=== PATIENT | male | born 1995 | race Caucasian/White ===

== ENCOUNTER 2016-09-23 20:53 | Emergency (ER) ==
--- NOTE | 2016-09-23 21:04 | ED EKG INTERP ---
EKG Interpretation - EKG Time of EKG reading by physician:: 21:03 EKG Read and Signed by:: Pascual Pina Rate: 85 Rhythm: nsr [place]: normal QRS: normal [place] Interval: normal ST Wave: normal
[2016-09-23] MEDS ORDERED: ASPIRIN PO STA (21:13)
[2016-09-23] MEDS ORDERED: NITROGLYCERIN SL PRN (21:13)
[2016-09-23 21:20] LABS: MANUAL DIFF NEEDED? NO
[2016-09-23 21:25] LABS: BASO% 0.4 % (0.0-0.8); EOS# 0.05 X1000 (0.0-0.7); EOS% 0.6 % (0.0-10.0); HEMATOCRIT 45.7 % (42.0-52.0); HEMOGLOBIN 16.1 g/dL (14.0-18.0); IMM GRAN# 0.02 X1000 (0.0-0.04); IMM GRAN% 0.2 % (0.0-0.5); LYMPH# 1.63 X1000 (1.2-3.4); LYMPH% 19.6 % (20.5-51.1); MCH 30.2 PG (27-31); MCHC 35.2 g/dL (33-37); MCV 85.7 FL (81-99); MONO# 1.27 X1000 (0.11-0.59); MONO% 15.3 % (1.7-9.3); MPV 9.6 FL (7.4-10.4); NEUT% 63.9 % (42.2-75.2); PLT 302 X1000 (130-400); RBC 5.33 XMIL (4.7-6.1)
[2016-09-23 21:30] LABS: INR 1.07; PROTIME 11.3 Seconds (9.2-11.7)
[2016-09-23 21:50] LABS: AGAP 15; ALBUMIN 4.6 g/dL (3.5-5.0); ALKALINE PHOSPHATASE 48 U/L (32-122); BUN 13 mg/dL (8-22); CALCIUM 9.9 mg/dL (8.8-10.2); CHLORIDE 100 mmol/L (98-107); COSMO 276; GOT 25 U/L (10-34); GPT 52 U/L (10-44); MAGNESIUM 2.2 mg/dL (1.5-2.7); POTASSIUM 3.6 mmol/L (3.5-5.1); SODIUM 138 mmol/L (136-145); TCO2 23 mmol/L (25-35); TOTAL BILIRUBIN 0.64 mg/dL (0.20-1.00); TOTAL PROTEIN 7.5 g/dL (6.3-8.3)
[2016-09-23 22:00] LABS: CK PROFILE 334 U/L (24-204)
[2016-09-23 22:18] LABS: CK INDEX 0.6 (0.0-2.5); CK-MB 2.13 ng/mL (0.0-5.0)
[2016-09-23] MEDS ORDERED: HALDOL IV ONE (22:56)
[2016-09-23] MEDS ORDERED: ATIVAN IV ONE (22:56)
[2016-09-23] MEDS ORDERED: BENADRYL IV ONE (22:57)
[2016-09-23 23:00] LABS: URINE CULTURE NEEDED? NO; URINE MICRO REVIEW NEEDED? NO; URINE SOURCE CLEAN CATCH
[2016-09-23 23:06] LABS: BILIRUBIN URINE NEGATIVE (NEGATIVE); BLOOD URINE NEGATIVE (NEGATIVE); COLOR STRAW; GLUCOSE URINE NEGATIVE (NEGATIVE); LEUKOCYTES URINE NEGATIVE (NEGATIVE); NITRITE URINE NEGATIVE (NEGATIVE); PH URINE 7.5; PROTEIN URINE NEGATIVE (NEGATIVE); SP GRAVITY URINE 1.001; TURBIDITY URINE CLEAR (CLEAR); UR EPITHELIAL CELLS <10 /HPF (<10); URINE BACTERIA NEGATIVE /HPF; URINE RBC <10 /HPF (<10); URINE WBC <10 /HPF (<10); UROBILINOGEN URINE NORMAL (NORMAL)
--- NOTE | 2016-09-23 23:08 | PROVIDER DOCUMENTATION ---
HPI-Psychological Disorder - General Source: patient - History of Present Illness-Psych Onset/Duration: reports: 1-3 hours ago Timing: reports: still present Severity: reports: mild Situational problems related to:: reports: N/A Psychiatric Complaints: reports: anxiety, rapid pulse. denies: confused, depressed, frustrated, homicidal thoughts, suicidal ideation Substance Use: reports: none/never Previous psych related hospitalizations?: No Patient arrived by:: private car Similar Symptoms Previously?: Yes Recently seen or treated by another doctor?: Yes <Khanh Cisse - Last Filed: 09/23/16 23:00> <Pascual Pina - Last Filed: 09/24/16 00:10> - General Chief Complaint: Chest Pain Stated Complaint: NUMBNESS, CP Time Seen by Provider: 09/23/16 22:51 Allergies/Adverse Reactions: Patient Allergies Allergy/AdvReac Type Severity Reaction Status Date / Time No Known Allergies Allergy Verified 09/23/16 23:35 Home Medications: Home Medication List Medication Instructions Recorded Confirmed Last Taken Type Montelukast Sodium [Singulair] 10 mg PO DAILY 03/15/12 09/23/16 09/23/16 History Cetirizine HCl [Zyrtec] 10 mg PO DAILY 03/12/16 09/23/16 09/23/16 History Mesalamine D.r. [Lialda] 2.4 gm PO DAILY 03/12/16 03/12/16 09/24/16 History Alprazolam [Xanax] 1 tab PO PRN PRN 09/23/16 09/24/16 09/24/16 History Calcium/Vit B12/FA/Pyridoxine 1 tab PO DAILY 09/23/16 09/23/16 09/22/16 History [Folic Acid-Vit B6-Vit B12 Tab] Clonazepam [Klonopin] 1 tab PO BID 09/23/16 09/24/16 09/24/16 History Dextroamphetamine/Amphetamine 1 tab PO DAILY 09/23/16 09/24/16 09/23/16 History [Adderall 20 mg Tablet] Dextroamphetamine/Amphetamine 1 tab PO DAILY 09/23/16 09/24/16 09/23/16 History [Adderall 30 mg Tablet] Risperidone [Risperdal] 1 tab PO DAILY 09/23/16 09/23/16 09/23/16 History - History of Present Illness-Psych Nature of Presenting Problem: PT C/O OF ANXIETY ATTACK HAS HX OF ANXIETY ATTACKS. (Khanh Cisse) Review of Systems - Adult - REVIEW OF SYSTEMS - ADULT Constitutional: denies: chills, fever, fatique Eyes: denies: discharge, decreased vision, double vision Ears, Nose, Mouth & Throat: denies: hearing loss, mouth/dental pain, throat pain Cardiovascular: denies: chest pain, irregular heart rate, palpitations Respiratory: reports: shortness of breath. denies: cough, wheezing Gastrointestinal: denies: abdominal pain, nausea, vomiting Genitourinary: denies: dysuria, flank pain, hematuria Musculoskeletal: denies: back pain, muscle aches, neck pain Integumentary: denies: hives, itching, rash Neurological: denies: dizziness/vertigo, headache/migraines, loss of balance Psychiatric: reports: anxiety, panic attacks. denies: alcohol/drug dependence, emotional problems, suicidal thoughts All Other Systems: Reviewed and Negative <Khanh Cisse - Last Filed: 09/23/16 23:00> Past History - Adult - PAST MEDICAL HISTORY-ADULT Review of Records: reports: Nursing Assessment Review, Medications Reviewed Major Childhood Illnesses: reports: denies history Gastrointestinal: reports: Crohn's Psychiatric: reports: anxiety, depression Other Conditions: reports: denies history - PRIOR SURGERIES/PROCEDURES Surgical/Procedure History: reports: none - PRIOR HOSPITALIZATIONS Prior Hospitalizations: reports: none - IMMUNIZATION STATUS Childhood Immunizations: See Nurse Assessment Flu Vaccine: See Nurse Assessment - FAMILY HISTORY Family History: reviewed, not pertinent - SOCIAL HISTORY Smoking: denies Substance Use: none/never Alcohol Use Frequency: occasionally Number of drinks per typical drinking period:: 2 drinks Living Situation: family <Khanh Cisse - Last Filed: 09/23/16 23:00> Physical Exam-Psych Focus - Physical Exam-Psych Initial Vital Signs Reviewed: Yes Appearance: appropriate appearance, appropriate insight, neat, no apparent distress, no memory impairment Neurological: alert, oriented x 3, anxious Behavior/Eye Contact/Speech: cooperative, good eye contact, normal speech Thoughts/Hallucinations: normal thought pattern, no apparent hallucination, auditory hallucinations HENMT: normocephalic/atraumatic, moist mucous membranes, normal ENT inspection, TMs normal, pharynx normal Neck: non-tender, full range of motion, supple, normal inspection Respiratory: chest non-tender, lungs clear, normal breath sounds, no pleuratic chest pain, no respiratory distress, no accessory muscle use Cardiovascular: normal peripheral pulses, no edema, no gallop, no JVD, no murmur , tachycardia Abdominal Exam: normal bowel sounds, non tender, soft, no organomegaly, no pulsatile mass Back Exam: normal inspection, no CVA tenderness, no vertebral tenderness Extremity: normal range of motion, normal inspection Integumentary: normal color, normal turgor, warm/dry <Khanh Cisse - Last Filed: 09/23/16 23:00> Departure <Khanh Cisse - Last Filed: 09/23/16 23:00> - Departure Time of Disposition Order: 00:09 Certified Medical Emergency: Emergent <Pascual Pina - Last Filed: 09/24/16 00:10> - Departure DIAGNOSIS: Anxiety attack Disposition: HOME 01 Condition: Good Additional Instructions: ED Follow Up Instructions: You have been treated by a care provider in the Emergency Department. These instructions are being provided to you so you can have an understanding of how to care for yourself upon discharge. Upon discharge from the Emergency Department, you are responsible for making arrangements for follow-up care by a physician of your choice. Take all prescribed medications as directed. Return to the Emergency Department immediately for any new or worsening symptoms. You may call the Physician Referral phone number at [phone] to obtain a list of Physicians who are taking new patients. Physician Attestation
[2016-09-23 23:14] LABS: UR AMPHETAMINES QUAL NONE DETECTED (NONE DETECT); UR BARBITUATES QUAL NONE DETECTED (NONE DETECT); UR BENZODIAZEPIN QUAL NONE DETECTED (NONE DETECT); UR CANNABINOIDS QUAL NONE DETECTED (NONE DETECT); UR COCAINE QUAL NONE DETECTED (NONE DETECT); UR METHADONE QUAL NONE DETECTED (NONE DETECT); UR OPIATES QUAL NONE DETECTED (NONE DETECT); UR OXYCODONE QUAL NONE DETECTED (NONE DETECT); UR PCP QUAL NONE DETECTED (NONE DETECT)
[2016-09-24 00:03] VITALS: BP 132/71
--- NOTE | 2016-09-24 05:47 | EKG Report ---
Test Performed on : 09/23/2016 8:55:54 PM Test Reason : CP Blood Pressure : / mmHG Vent. Rate : 085 BPM Atrial Rate : 085 BPM P-R Int : 138 ms QRS Dur : 112 ms QT Int : 334 ms P-R-T Axes : 055 018 041 degrees QTc Int : 397 ms Normal sinus rhythm. Incomplete right bundle branch block Borderline ECG No previous ECGs available Unconfirmed Result
--- NOTE | 2016-09-24 09:16 | Diag Imaging Result Document ---
PROCEDURE NAME: CHEST-2 VIEWS - 09/23/2016 CHEST X-RAY 2 VIEWS: COMPARISON: None. FINDINGS: The lungs are normally expanded and clear. Heart size and mediastinal contours are normal. No pneumothorax or pleural effusion. IMPRESSION: Negative exam.
== END 2016-09-24 00:41 | disposition home or self-care (01) ==
LOC: ED 20:53
DX: F41.9 Anxiety disorder, unspecified (principal); R07.9 Chest pain, unspecified; R20.0 Anesthesia of skin; R06.02 Shortness of breath; K50.90 Crohn's disease, unspecified, without complications; Z79.899 Other long term (current) drug therapy
CPT/HCPCS: 71020; 80053; 81001; 82550; 82553; 83735; 83880; 84484; 85025; 85610; 85730; 93005; G0480; J1200; J1630; J2060; 80324; 80345; 80346; 80349; 80353; 80358; 80361; 80365; 83992